=== PATIENT | female | born 1985 | race Caucasian/White ===

== ENCOUNTER 2025-09-02 15:51 | Emergency (ER) | payer SELFPAY ==
[~2025-09-02] VITALS: Ht 165.1 cm; Wt 73.0 kg
[2025-09-02 16:41] VITALS: PULSE 99; RESP 20; O2SAT 99
[2025-09-02] MEDS: ALBUTEROL (0.083%) 2.5MG/3ML NEB HHN ONE (16:41)
[2025-09-02] MEDS: METHYLPREDNISOLONE SOD SUCC 125MG/2ML (ACT-O-VIAL) IV ONE (17:03)
[2025-09-02] MEDS: FAMOTIDINE 20MG/2ML VIAL IV ONE (17:03)
[2025-09-02] MEDS: DIPHENHYDRAMINE 50MG/ML VIAL IV ONE (17:03)
[2025-09-02 17:15] LABS: BASOPHILS % 0.7 % (0.0-2.0); EOSINOPHILS % 0.5 % (0.0-5.0); HEMATOCRIT. 37.8 % (36.0-48.0); HEMOGLOBIN. 12.8 g/dL (12.0-16.0); LYMPHOCYTES % 23.5 % (20.0-50.0); MEAN PLATELET VOLUME 6.9 fl (7.4-10.4); MONOCYTES % 6.6 % (2.0-8.0); NEUTROPHILS % 68.7 % (40.0-76.0); PLATELET 456 x1000/uL (130-400); RED BLOOD CELL COUNT 4.12 mill/uL (4.2-5.4); RED CELL DISTRIBUTION WIDTH 15.2 % (11.6-14.6)
[2025-09-02 17:27] LABS: CREATININE 0.9 mg/dL (0.6-1.0)
[2025-09-02 17:28] LABS: PROTEIN TOTAL 7.3 g/dL (6.0-8.3); UREA NITROGEN BLOOD 12 mg/dL (9-23)
[2025-09-02 17:29] LABS: ASPARTATE AMINOTRANSFERASE 26 IU/L (<34)
[2025-09-02 17:30] LABS: BILIRUBIN DIRECT < 0.1 mg/dL (<=3.0); BILIRUBIN TOTAL 0.2 mg/dL (0.1-1.0)
[2025-09-02 17:39] LABS: INR 0.9
[2025-09-02 17:41] LABS: HCG SCREEN POSITIVE
[2025-09-02] MEDS ORDERED: FAMO-135 MT (19:42)
[2025-09-02] MEDS ORDERED: DIPH25CA83 MT (19:42)
[2025-09-02] MEDS ORDERED: P50 MT (19:42)
[2025-09-02 20:34] VITALS: BP 101/63; PULSE 88; RESP 16; TEMP 36.8; O2SAT 100
[2025-09-02] MEDS ORDERED: EPIN0.3P3 IM (20:47)
== END 2025-09-02 20:50 | disposition home or self-care (01) ==
LOC: ER 15:51
DX: T78.2XXA Anaphylactic shock, unspecified, initial encounter (principal); R06.02 Shortness of breath; N89.8 Other specified noninflammatory disorders of vagina; Z79.899 Other long term (current) drug therapy; X58.XXXA Exposure to other specified factors, initial encounter
CPT/HCPCS: 80076; 80048; 84703; 84702; 85025; 85610; 85730; 36415; 71045; 94640; 93005; 98960; 96374; 96375; 99285; J1200; J1308; J2919; Z7610 ×4; 94070; 94664